=== PATIENT | male | born 1980 | race Caucasian/White ===

== ENCOUNTER 2024-10-30 11:18 | Inpatient (IN) | payer MEDICAID ==
[~2024-10-30] VITALS: Ht 170.2 cm; Wt 53.1 kg
[2024-10-30 11:22] VITALS: O2SAT 99
[2024-10-30] MEDS: MORPHINE SULFATE 4 MG/ML INJ (FOR IV/IM USE) IV ONE (12:10)
[2024-10-30 12:59] LABS: BASOPHILS % 0.4 % (0.0-2.0); EOSINOPHILS % 0.0 % (0.0-5.0); HEMATOCRIT. 25.6 % (42.0-52.0); HEMOGLOBIN. 7.4 g/dL (14.0-18.0); LYMPHOCYTES % 9.3 % (20.0-50.0); MEAN PLATELET VOLUME 7.1 fl (7.4-10.4); MONOCYTES % 8.8 % (2.0-8.0); NEUTROPHILS % 81.5 % (40.0-76.0); PLATELET 492 x1000/uL (130-400); RED BLOOD CELL COUNT 3.19 mill/uL (4.7-6.1); RED CELL DISTRIBUTION WIDTH 19.8 % (11.6-14.6)
[2024-10-30 13:02] LABS: CREATININE 0.5 mg/dL (0.6-1.3)
[2024-10-30 13:03] LABS: UREA NITROGEN BLOOD 9 mg/dL (9-23)
[2024-10-30 13:04] LABS: ASPARTATE AMINOTRANSFERASE 17 IU/L (<34)
[2024-10-30 13:05] LABS: BILIRUBIN DIRECT 0.1 mg/dL (<=3.0); BILIRUBIN TOTAL 0.3 mg/dL (0.1-1.0); PROTEIN TOTAL 7.1 g/dL (6.0-8.3)
[2024-10-30] MEDS ORDERED: MAGNESIUM/ALUMINUM HYDROXIDE/SIMETHICONE 30ML UDC PO PRN (15:30)
[2024-10-30] MEDS ORDERED: ACETAMINOPHEN 325MG TABLET PO PRN ×2 (15:30)
[2024-10-30] MEDS ORDERED: CLONIDINE 0.1MG TABLET PO PRN (15:30)
[2024-10-30] MEDS ORDERED: IPRATROPIUM/ALBUTEROL 0.5-3(2.5)MG/3ML NEB HHN PRN (15:30)
[2024-10-30] MEDS ORDERED: GUAIFENESIN 200MG/10ML SUGAR FREE UDC PO PRN (15:30)
[2024-10-30] MEDS ORDERED: DOCUSATE SODIUM 100MG CAPSULE PO PRN (15:30)
[2024-10-30 17:52] VITALS: BP 160/85; PULSE 69; RESP 18; TEMP 36.696
[2024-10-30] MEDS ORDERED: NALOXONE HCL 0.4MG/ML VIAL IV PRN (18:15)
[2024-10-30] MEDS: DEXT 5%/0.45% NACL 1000ML 1,000 ML IV SCH (18:19)
[2024-10-30] MEDS: MORPHINE SULFATE 4 MG/ML INJ (FOR IV/IM USE) IV PRN (18:20)
[2024-10-30] MEDS ORDERED: POLYETHYLENE GLYCOL 3350 (17GM) 1 DOSE PACK PO NR (19:06)
[2024-10-30] MEDS ORDERED: DOCU100T PO (19:42)
[2024-10-30] MEDS ORDERED: FERR236T3 MT (19:42)
[2024-10-30] MEDS ORDERED: OXYC-93 MT (19:42)
[2024-10-30] MEDS ORDERED: PROC-1 MT (19:42)
[2024-10-30] MEDS ORDERED: [UNRECOGNIZED DRUG - CODE] PO (19:42)
[2024-10-30 20:00] VITALS: BP 130/92; PULSE 100; RESP 15; TEMP 36.8; O2SAT 100
[2024-10-30] MEDS: PANTOPRAZOLE SODIUM 40 MG/VIAL IV SCH (22:00)
[2024-10-30] MEDS: POLYETHYLENE GLYCOL 3350 (17GM) 1 DOSE PACK PO NR (22:00)
[2024-10-30] MEDS: HYDROCODONE/ACETAMINOPHEN 10/325MG TABLET PO PRN (22:01)
[2024-10-30 22:31] LABS: LACTATE DEHYDROGENASE 136 IU/L (120-246)
[2024-10-31] VITALS (7 sets, daily range): BP systolic 124–145; BP diastolic 86–95; PULSE 92–106; RESP 15–20; TEMP 35.7–36.7; O2SAT 96–100
[2024-10-31] MEDS: ONDANSETRON HCL 4MG/2ML INJ IV PRN (05:43)
[2024-10-31 11:33] LABS: HEMATOCRIT. 23.2 % (42.0-52.0); MEAN PLATELET VOLUME 7.0 fl (7.4-10.4); PLATELET 448 x1000/uL (130-400); RED BLOOD CELL COUNT 2.99 mill/uL (4.7-6.1); RED CELL DISTRIBUTION WIDTH 19.8 % (11.6-14.6)
[2024-10-31 11:53] LABS: CREATININE 0.5 mg/dL (0.6-1.3)
[2024-10-31 11:54] LABS: TRIGLYCERIDE 143 mg/dL (0-150); UREA NITROGEN BLOOD 8 mg/dL (9-23)
[2024-10-31 11:55] LABS: LDL CHOLESTEROL 83 mg/dL (5-100)
[2024-10-31 11:56] LABS: HEMOGLOBIN. 6.8 g/dL (14.0-18.0); T4 FREE 1.06 ng/dL (0.89-1.76)
[2024-10-31] MEDS ORDERED: NON FORMULARY MED XX SCH (13:45)
[2024-10-31] MEDS: SUCRALFATE 1G TABLET PO SCH (16:13)
[2024-10-31] MEDS: IRON SUCROSE COMPLEX 100 MG/5 ML ML IV SCH (16:13)
[2024-10-31 16:39] LABS: LYMPHOCYTES % MANUAL 9.0 % (20.0-50.0); MONOCYTES % MANUAL 7.0 % (2.0-8.0); NEUTROPHILS % MANUAL 84.0 % (45.0-75.0); PLATELET ESTIMATE INCREASED
[2024-11-01] VITALS: BP 145/97; PULSE 96; RESP 16; TEMP 36.5; O2SAT 99
[2024-11-01 04:00] VITALS: BP 149/71; PULSE 104; RESP 16; TEMP 36.8; O2SAT 96
[2024-11-01 08:00] VITALS: BP 172/120; PULSE 105; RESP 22; TEMP 36.6; O2SAT 99
[2024-11-01] MEDS: DOCUSATE SODIUM 100MG CAPSULE PO SCH (09:00)
[2024-11-01 11:01] LABS: HEMATOCRIT. 30.1 % (42.0-52.0); HEMOGLOBIN. 9.0 g/dL (14.0-18.0); RED BLOOD CELL COUNT 3.62 mill/uL (4.7-6.1); RED CELL DISTRIBUTION WIDTH 21.3 % (11.6-14.6)
[2024-11-01 12:00] VITALS: BP 138/95; PULSE 108; RESP 24; TEMP 36.9; O2SAT 98
[2024-11-01] MEDS: LACTULOSE 20G/30ML UDC PO NR (12:37)
[2024-11-01 14:39] LABS: BAND% 3.0 % (1.0-6.0); LYMPHOCYTES % MANUAL 3.0 % (20.0-50.0); MONOCYTES % MANUAL 10.0 % (2.0-8.0); NEUTROPHILS % MANUAL 84.0 % (45.0-75.0)
[2024-11-01 14:40] LABS: PLATELET ESTIMATE NORMAL
[2024-11-01 14:42] LABS: PLATELET 332 x1000/uL (130-400)
[2024-11-01 15:37] LABS: UREA NITROGEN BLOOD 7 mg/dL (9-23)
[2024-11-01 15:38] LABS: CREATININE 0.5 mg/dL (0.6-1.3)
[2024-11-01 15:39] LABS: ASPARTATE AMINOTRANSFERASE 14 IU/L (<34)
[2024-11-01 15:40] LABS: BILIRUBIN DIRECT 0.3 mg/dL (<=3.0); BILIRUBIN TOTAL 0.8 mg/dL (0.1-1.0); INR 1.1; PHOSPHORUS 3.8 mg/dL (2.5-4.9); PROTEIN TOTAL 7.1 g/dL (6.0-8.3)
[2024-11-01 15:43] LABS: FOLIC ACID (FOLATE) SERUM 7.30 ng/mL (>5.38)
[2024-11-01] MEDS: MORPHINE SULFATE 4 MG/ML INJ (FOR IV/IM USE) IV PRN (15:44)
[2024-11-01 16:00] VITALS: BP 146/100; PULSE 93; RESP 15; TEMP 36.3; O2SAT 99
[2024-11-01 16:00] LABS: VITAMIN B12 SERUM 3332 pg/mL (211-911)
[2024-11-01 16:16] LABS: HEPATITIS A AB IGM NEGATIVE (Negative)
[2024-11-01 16:17] LABS: HEPATITIS B CORE AB IGM NEGATIVE (Negative); HEPATITIS C AB NON REACTIVE (Neg) (Negative)
[2024-11-01 20:00] VITALS: BP 147/103; PULSE 109; RESP 18; TEMP 36.7; O2SAT 99
[2024-11-01] MEDS: LACTULOSE 20G/30ML UDC PO SCH (21:25)
[2024-11-01] MEDS: SENNOSIDES 8.6MG TABLET PO SCH (21:25)
[2024-11-02 00:43] VITALS: BP 155/105; PULSE 92; RESP 18; TEMP 36.7; O2SAT 99
[2024-11-02 04:00] VITALS: BP 147/86; PULSE 89; RESP 18; TEMP 36.5; O2SAT 99
[2024-11-02 07:13] LABS: HEMATOCRIT. 28.8 % (42.0-52.0); HEMOGLOBIN. 8.9 g/dL (14.0-18.0); MEAN PLATELET VOLUME 6.9 fl (7.4-10.4); PLATELET 398 x1000/uL (130-400); RED BLOOD CELL COUNT 3.60 mill/uL (4.7-6.1); RED CELL DISTRIBUTION WIDTH 21.9 % (11.6-14.6)
[2024-11-02 07:28] LABS: CREATININE 0.6 mg/dL (0.6-1.3)
[2024-11-02 07:29] LABS: UREA NITROGEN BLOOD 7 mg/dL (9-23)
[2024-11-02 07:30] LABS: ASPARTATE AMINOTRANSFERASE 14 IU/L (<34)
[2024-11-02 07:31] LABS: BILIRUBIN TOTAL 0.6 mg/dL (0.1-1.0); PROTEIN TOTAL 6.7 g/dL (6.0-8.3)
[2024-11-02 11:19] LABS: PROTEIN BODY FLUID 2.7 gm/dL
[2024-11-02 11:53] LABS: BODY FLUID RBC 1198 /cu mm (0-2000); BODY FLUID WBC 25 /cu mm (0-200)
[2024-11-02 11:54] LABS: BODY FLUID MONOCYTES 14 %
[2024-11-02 12:00] VITALS: BP 122/87; PULSE 110; RESP 20; TEMP 36.7
[2024-11-02] MEDS: ALBUMIN HUMAN 12.5GM/50ML (25%) IV SCH (13:52)
[2024-11-02 16:00] VITALS: BP 140/87; PULSE 103; RESP 19; TEMP 36.7; O2SAT 99
[2024-11-02 16:13] VITALS: BP 140/87; PULSE 103; RESP 18; TEMP 98
[2024-11-02 16:17] LABS: LYMPHOCYTES % MANUAL 7.0 % (20.0-50.0); MONOCYTES % MANUAL 7.0 % (2.0-8.0); NEUTROPHILS % MANUAL 86.0 % (45.0-75.0); PLATELET ESTIMATE NORMAL
[2024-11-04] MEDS ORDERED: LACTULOSE 20G/30ML UDC PO PRN (13:30)
== END 2024-11-02 16:40 | disposition home or self-care (01) | DRG 240 ==
LOC: ER 11:24 → 5WST 13:56 → EDBEDREQ 14:02 → EDBEDREQTM 14:02
PROVIDERS: ADMIT Internal Medicine; ATTEND Internal Medicine
PROC: 30233N1 Transfusion of Nonautologous Red Blood Cells into Peripheral Vein, Percutaneous Approach (ICD-10-PCS; 2024-10-31)
PROC: 0W9G3ZZ Drainage of Peritoneal Cavity, Percutaneous Approach (ICD-10-PCS; principal; 2024-11-02)
DX: C16.9 Malignant neoplasm of stomach, unspecified (principal); E43 Unspecified severe protein-calorie malnutrition; R64 Cachexia; J91.0 Malignant pleural effusion; D62 Acute posthemorrhagic anemia; J91.8 Pleural effusion in other conditions classified elsewhere; E87.1 Hypo-osmolality and hyponatremia; K70.31 Alcoholic cirrhosis of liver with ascites; G89.3 Neoplasm related pain (acute) (chronic); K29.70 Gastritis, unspecified, without bleeding; C78.7 Secondary malignant neoplasm of liver and intrahepatic bile duct; K81.9 Cholecystitis, unspecified; D50.9 Iron deficiency anemia, unspecified; K59.09 Other constipation; E87.5 Hyperkalemia; J98.11 Atelectasis; Z68.1 Body mass index [BMI] 19.9 or less, adult; Z91.148 Patient's other noncompliance with medication regimen for other reason; Z79.899 Other long term (current) drug therapy
CPT/HCPCS: 36415; 49083; 71045; 74176; 76604; 80048; 80053; 80061; 80076; 82040; 82105; 82140; 82378; 82607; 82728; 82746; 83540; 83550; 83615; 83735; 84100; 84439; 84443; 85014; 85018; 85025; 85044; 86301; 86705; 86709; 86850; 86900; 86920; 87340; 88108; 93005; 93970; 96374; 99285; A4606; J2270; J2405; J2470; P9016; P9047

== ENCOUNTER 2025-01-22 11:17 | Emergency (ER) | payer MEDICAID ==
[~2025-01-22] VITALS: Ht 170.2 cm; Wt 41.0 kg
[~2025-01-22 11:17] MED LIST: DOCU100T PO; FERR236T3 MT; OXYC-93 MT; PROC-1 MT; [UNRECOGNIZED DRUG - CODE] PO
[2025-01-22 11:19] VITALS: TEMP 98; O2SAT 98
[2025-01-22] MEDS ORDERED: VANCOMYCIN 1.5GM/250ML 250 ML IV STA (11:34)
[2025-01-22 11:45] VITALS: BP 101/67; PULSE 131; RESP 28; O2SAT 88
[2025-01-22] MEDS ORDERED: ONDANSETRON HCL 4MG/2ML INJ IV ONE (11:45)
[2025-01-22] MEDS ORDERED: CEFEPIME 2GM IN DEXT 5% 100ML IV ONE (11:45)
[2025-01-22] MEDS: LACTATED RINGERS 500 ML IV SCH (12:02)
[2025-01-22] MEDS: CEFEPIME 2,000MG in DEXT 5% WATER 100ML IV NR (12:06)
[2025-01-22] MEDS: VANCOMYCIN 1.5GM PMX (XELLIA) 300 ML IV NR (12:06)
[2025-01-22 12:13] LABS: HEMATOCRIT. 22.9 % (42.0-52.0); RED BLOOD CELL COUNT 2.56 mill/uL (4.7-6.1); RED CELL DISTRIBUTION WIDTH 27.4 % (11.6-14.6)
[2025-01-22] MEDS ORDERED: ONDANSETRON HCL 4MG/2ML INJ IV NR (12:15)
[2025-01-22 12:17] LABS: INR 2.1
[2025-01-22 12:24] LABS: UREA NITROGEN BLOOD 19 mg/dL (9-23)
[2025-01-22 12:25] LABS: PROTEIN TOTAL 5.0 g/dL (6.0-8.3); TROPONIN I HIGH SENSITIVITY < 4 ng/L (3.0-53)
[2025-01-22 12:26] LABS: ASPARTATE AMINOTRANSFERASE 81 IU/L (<34); BILIRUBIN DIRECT 0.9 mg/dL (<=3.0); BILIRUBIN TOTAL 1.3 mg/dL (0.1-1.0)
[2025-01-22 12:27] LABS: HEMOGLOBIN. 7.0 g/dL (14.0-18.0)
[2025-01-22] MEDS ORDERED: DEXTROSE 50% WATER 50ML SYRINGE IV ONE (12:27)
[2025-01-22 12:42] LABS: CREATININE 0.3 mg/dL (0.6-1.3)
[2025-01-22 14:03] LABS: BAND% 12.0 % (1.0-6.0); LYMPHOCYTES % MANUAL 20.0 % (20.0-50.0); MONOCYTES % MANUAL 8.0 % (2.0-8.0); NEUTROPHILS % MANUAL 60.0 % (45.0-75.0)
[2025-01-22 14:04] LABS: PLATELET ESTIMATE NORMAL
[2025-01-22 14:30] LABS: PLATELET 240 x1000/uL (130-400)
== END 2025-01-22 12:30 ==
LOC: ER 11:17 → CANBEDREQ 13:02
DX: I46.9 Cardiac arrest, cause unspecified (principal); R06.02 Shortness of breath; Z79.899 Other long term (current) drug therapy
CPT/HCPCS: 80076; 80048; 82962; 83605; 85025; 85610; 87040; 87186; 84484; 87077; 36415; 84145; 93005; 96368; 96365; 99285; J3373; J0692; J7060; Z7610